=== PATIENT | female | born 1940 | race African-American/Black ===

== ENCOUNTER 2021-03-26 20:22 | Emergency (ER) | payer MEDICAID ==
[~2021-03-26] VITALS: Ht 157.5 cm; Wt 59.0 kg
[2021-03-26] MEDS ORDERED: TETANUS, DIPHTHERIA, PERTUSSIS VAC/PF 0.5ML (>7YR OLD) IM ONE (22:30)
[2021-03-26] MEDS ORDERED: LIDOCAINE HCL/PF 1% 10 MG/ML 5ML VIAL INFIL ONE (22:30)
[2021-03-26] MEDS ORDERED: BACITRACIN ZINC OINT UDPKT TOP ONE (22:30)
[2021-03-27] MEDS ORDERED: CEPHALEXIN 250MG CAPSULE PO ONE (00:15)
[2021-03-27] MEDS ORDERED: CEPH500C2 MT (00:15)
[2021-03-27] MEDS ORDERED: BO1 TP (00:15)
[2021-03-27 00:36] VITALS: BP 150/60
== END 2021-03-27 00:36 | disposition home or self-care (01) ==
LOC: ER 20:22
DX: S61.213A Laceration without foreign body of left middle finger without damage to nail, initial encounter (principal); W26.0XXA Contact with knife, initial encounter; Y93.G3 Activity, cooking and baking; Y92.010 Kitchen of single-family (private) house as the place of occurrence of the external cause; I10 Essential (primary) hypertension; E11.9 Type 2 diabetes mellitus without complications; Z88.0 Allergy status to penicillin; Z88.2 Allergy status to sulfonamides; Z79.899 Other long term (current) drug therapy; Z23 Encounter for immunization
CPT/HCPCS: 12001; 82962; 90471; 90715; 99283; J3490; Z7610